=== PATIENT | male | born 1945 | race Caucasian/White ===

== ENCOUNTER 2024-04-10 20:28 | Inpatient (IN) | payer MEDICARE ==
[~2024-04-10] VITALS: Ht 177.8 cm; Wt 84.3 kg
[2024-04-10 22:48] VITALS: BP 156/82; PULSE 68; RESP 18; TEMP 100.1; O2SAT 96
[2024-04-10 23:16] VITALS: BP 156/82; PULSE 68; RESP 18; TEMP 100.1; O2SAT 96
[2024-04-11] MEDS ORDERED: DOCUSATE SOD 100 MG CAP PO PRN
[2024-04-11] MEDS ORDERED: NITROGLYCERIN 0.4 MG SL TAB SL PRN
[2024-04-11] MEDS ORDERED: MORPHINE SULFATE INJ 2 MG/ml SYRG IV PRN
--- NOTE | 2024-04-11 00:07 | DVHHP2 ---
History of Present Illness Reason for Visit: Left hip fracture History of Present Illness The patient is a 79-year-old male with past medical history of anxiety, insomnia, hypertension, acute pain, CVA on Plavix, and hyponatremia presented to [facility] ED with complaint of left hip pain. Patient reports he was standing on a chair while attempting to hang a clock on a wall when he lost balance and fell hitting his head, and landing mostly on his left hips with sustained injury. Patient was found by a neighbor who called EMS a proximally 8 hours on the floor. Patient was given 24 mg of ketamine IV by paramedics prior to arrival to the ED. patient was seen and evaluated at the facility ED, laboratory data shows WBC 11.7, hemoglobin 13.5, hematocrit 39.8, platelets 211, sodium 133, potassium 3.6, BUN 15, PT 11.8, INR 1.16, PTT 25.6, creatinine 0.80, blood pressure 178/74, heart rate 66, respiration 20, O2 saturation 95% room. CT of the pelvis revealing suspected left femoral neck fracture with foreshortening. Patient was given IV morphine sulfate 4 mg x 1, IV normal saline bolus, please see medication orders section in the chart. Patient was stabilized and then transferred to [facility] for ongoing care secondary to insurance purposes. On my assessment, patient denies chest pain, no headache, no dizziness, no loss of consciousness, no syncopal episode, no neck pain, no shortness of breath, no nausea, no vomiting, no fever, no chills. Patient was admitted for further evaluation and medical management. Past Medical History Anxiety, insomnia, hypertension, acute pain, CVA on Plavix, and hyponatremia Past Surgical History Denies all surgeries Family History Reviewed, noncontributory to the management of this case. Past Social History The patient lives at home, denies smoking, alcohol or illicit drugs abuse. Review of Systems Constitutional: Yes: Weakness; No: Fever, Chills, Sweats, Malaise, Other Eyes: No: Pain, Vision change, Conjunctivae inflammation, Eyelid inflammation, Other, Redness ENT: No: Ear pain, Ear discharge, Nose pain, Nose discharge, Nose congestion, Mouth pain, Mouth swelling, Throat pain, Throat swelling, Other Respiratory: No: Cough, Dry, Shortness of breath, SOB with excertion, Wheezing, Hemoptysis, Pleuritic Pain, Sputum, Wheezing, Other Cardiovascular: No: Chest Pain, Palpitations, Orthopnea, Paroxysmal Noc. Dyspnea, Edema, Lt Headedness, Other Gastrointestinal: No: Nausea, Vomiting, Abdominal Pain, Diarrhea, Constipation, Melena, Hematochezia, Other Genitourinary: No Dysuria, No Frequency, No Incontinence, No Hematuria, No Retention, No Other Musculoskeletal: other (Left hip pain); No: neck pain, shoulder pain, arm pain, back pain, hand pain, leg pain, foot pain Skin: Other (Superficial abrasion to the left elbow); No: Rash, Lesions, Jaundice, Bruising Neurological: No: Weakness, Numbness, Incoordination, Change in speech, C onfusion, Seizures, Other Exam Vital Signs Vital Signs Date Time Temp Pulse Resp B/P (MAP) Pulse Ox O2 Delivery O2 Flow Rate FiO2 04/10/24 22:48 100.1 68 18 156/82 (106) 96 100.1 General Appearance: Alert, Oriented X3, Cooperative, No acute distress HEENT: Atraumatic, PERRLA, EOMI, Mucous membr. moist/pink Respiratory: Clear to auscultation, Normal air movement Cardiovascular: Regular rate, Normal S1, Normal S2, No murmurs Abdominal: Normal bowel sounds, Soft, No tenderness, No hepatospenomegaly, No masses Extremities: No clubbing, No cyanosis, No edema, Normal pulses, Other (Left hip tenderness) Skin: No rashes, No breakdown, No significant lesion Neuro: Normal speech, Normal tone, Sensation intact, Cranial nerves 3-12 NL, Reflexes 2+, Other (Generalized weakness) Psych/Mental Status: Mental status NL, Mood NL Labs/Xrays CT of the pelvis result in the chart Assessment/Plan Assessment/Plan Fall with injury Left hip fracture Hypertensive urgency Generalized weakness Plan 1. Admit to med surge unit 2. Breathing treatment 3. Pain control management 4. Management of fluids and electrolytes 5. Consultation for orthopedic surgery 6. Diagnostic tests pelvic CT 7. DVT prophylaxis-on Lovenox 8. Repeat labs CBC, CMP in a.m. 9. Continue with current medical management 10. Treatment plan discussed with patient and RN. Patient verbalized understanding. Plan discussed with: Patient, Other (RN) My Orders Orders - DAVID PINEDA DNP Procedure Category Date Status Time Clonidine Hcl Tablet PHA 04/11/24 Transmitted (Catapres Tablet) 00:00 Amlodipine Tablet PHA 04/11/24 Transmitted (Norvasc Tablet) 10:00 * Orthopedic Consult CONS 04/10/24 Transmitted 23:58 Hydralazine Injection PHA 04/11/24 Transmitted (Apresoline Inject 00:00 Admit ADMIT 04/10/24 Transmitted 23:58 Allergies RAPHAEL 04/10/24 Transmitted 23:58 Code Status CODE 04/10/24 Transmitted 23:58 0.9% Ns 1000 Ml PHA 04/11/24 Transmitted 00:00 Oxygen Per Hour RT 04/10/24 Transmitted 23:58 Hydrocodone-Acet PHA 04/11/24 Transmitted 5/325mg Tab ([place] 00:00 Ondansetron Hcl PHA 04/11/24 Transmitted (Zofran) 00:00 Docusate Sodium PHA 04/11/24 Transmitted Capsule (Colace 00:00 Enoxaparin Sodium PHA 04/11/24 Transmitted (Lovenox) 10:00 Complete Blood Count LAB 04/11/24 Transmitted 04:00 Comprehensive LAB 04/11/24 Transmitted Metabolic Panel 04:00 Cardiac DIET 04/11/24 Transmitted Diet-2gna,Lofat,Lochol Breakfast Condition: Serious RAPHAEL 04/10/24 Transmitted 23:58 Acetaminophen Tablet PHA 04/11/24 Transmitted (Tylenol Tablet) 00:00 Morphine Sulfate PHA 04/11/24 Transmitted Injection 00:00 Nitroglycerin PHA 04/11/24 Transmitted Sublingual (Ntrostat 00:00 Morphine Sulfate PHA 04/11/24 Transmitted Injection 00:00 Notify Md Of Changes RAPHAEL 04/10/24 Transmitted From Base 23:58 Emergency Dysrhythmia RAPHAEL 04/10/24 Transmitted Protocol 23:58 Oxygen By Nasal RT 04/10/24 Transmitted Cannula 23:58 Lorazepam 2mg/Ml Inj PHA 04/11/24 Transmitted (Ativan Inj) 00:00 Problem List: (1) Fall with injury (2) Hip fracture, left (3) Hypertensive urgency (4) Generalized weakness Date of Service: Apr 11, 2024 Billing Provider: DAVID PINEDA DNP Common Visit Codes: [id number] INP/OBS CARE (HIGH) DAVID PINEDA DNP Apr 11, 2024 00:07
[2024-04-11] MEDS ORDERED: TEMA30CA PO (00:34)
[2024-04-11] MEDS ORDERED: LORA-1123 PO (00:34)
[2024-04-11 01:00] VITALS: BP 149/83; PULSE 66; RESP 16; TEMP 99.7; O2SAT 94
[2024-04-11] MEDS: MORPHINE SULFATE INJ 2 MG/ml SYRG IV PRN (01:40)
[2024-04-11] MEDS: SODIUM CHLORIDE 0.9% 1,000 ML IV SCH (01:40)
[2024-04-11 05:00] VITALS: BP 155/92; PULSE 65; RESP 17; TEMP 100.7; O2SAT 94
[2024-04-11 06:40] LABS: Basophils # (auto) 0 10 ^3/uL (0-0.2); Basophils % (auto) 0.4 % (0.0-2.0); Eosinophils # (auto) 0.1 10 ^3/uL (0-0.8); Eosinophils % (auto) 1.1 % (0.0-7.0); Hemoglobin 13.7 g/dL (13.5-17.5); Lymphocytes # (auto) 0.5 10 ^3/uL (0.4-5.4); Lymphocytes % (auto) 6.2 % (10.0-50.0); Mean Corpuscular Hemoglobin 32.1 pg (28.0-32.0); Mean Corpuscular Hgb Conc. 34.3 g/dL (32.0-36.0); Mean Corpuscular Volume 93.4 fL (80.0-100.0); Monocytes # (auto) 0.4 10 ^3/uL (0-1.3); Monocytes % (auto) 5.5 % (0.0-12.0); Neutrophils # (auto) 6.6 10 ^3/uL (1.6-8.6); Neutrophils % (auto) 86.8 % (37.0-80.0); Nucleated Red Blood Cells % 0.1 %; Platelet Count (auto) 197 10^3/uL (140-450); Red Blood Cells 4.29 10^6/uL (4.5-5.90); White Blood Cell 7.6 10^3/uL (4.4-10.8)
[2024-04-11 06:45] LABS: Alanine Aminotransferase 12 U/L (7-40); Albumin 3.9 g/dL (3.2-4.8); Alkaline Phosphatase 50 U/L (46-116); Anion Gap 7 (5-15); Aspartate Aminotransferase 12 U/L (13-40); BUN/Creatinine Ratio 11.1 (10.0-20.0); Blood Urea Nitrogen 8 mg/dL (9-23); Calcium 9.3 mg/dL (8.7-10.4); Carbon Dioxide 23 mmol/L (20-31); Chloride 102 mmol/L (98-107); Glucose 124 mg/dL (74-106); Potassium 4.3 mmol/L (3.5-5.1); Sodium 132 mmol/L (136-145)
[2024-04-11 06:46] LABS: Bilirubin, Total 0.8 mg/dL (0.2-1.0); Total Protein 5.9 g/dL (5.7-8.2)
[2024-04-11 08:58] VITALS: BP 165/70; PULSE 70; RESP 16; TEMP 98.2; O2SAT 95
[2024-04-11] MEDS: ENOXAPARIN SOD 40 MG/0.4 ML SYRINGE SC SCH (11:23)
--- NOTE | 2024-04-11 11:45 | DVHPN2 ---
Reviewed: Care Plan, H&P, Labs, Medications, Previous Orders, Radiology Changes from previous H/P or p: No Changes Eyes: No Pain, No Vision change, No Conjunctivae inflammation, No Eyelid inflammation, No Other, No Redness ENT: No Ear pain, No Ear discharge, No Nose pain, No Nose discharge, No Nose congestion, No Mouth pain, No Mouth swelling, No Throat pain, No Throat swelling, No Other Cardiovascular: No Chest Pain, No Palpitations, No Orthopnea, No Paroxysmal Noc. Dyspnea, No Edema, No Lt Headedness, No Other Respiratory: No Cough, No Dry, No Shortness of breath, No SOB with excertion, No Wheezing, No Hemoptysis, No Pleuritic Pain, No Sputum, No Other Gastrointestinal: No Nausea, No Vomiting, No Abdominal Pain, No Diarrhea, No Constipation, No Melena, No Hematochezia, No Other Genitourinary: No Dysuria, No Frequency, No Incontinence, No Hematuria, No Retention, No Other Musculoskeletal: other (Left hip pain); No neck pain, No shoulder pain, No arm pain, No back pain, No hand pain, No leg pain, No foot pain Skin: No Rash, No Lesions, No Jaundice, No Bruising; Other (Superficial abrasion to the left elbow) Objective Vitals Vital Signs Date Time Temp Pulse Resp B/P (MAP) Pulse Ox O2 Delivery O2 Flow Rate FiO2 04/11/24 08:58 98.2 70 16 165/70 (101) 95 98.2 04/10/24 23:16 Nasal Cannula* 3 32 Intake/Output Intake and Output 04/11/24 07:00 Intake Total 120 ml Output Total 500 ml Balance -380 ml Intake Oral 120 ml Output Urine Total 500 ml Medications Current Medications Medications Dose Ordered Sig/Kannan Route Start Time Stop Time Status Last Admin Dose Admin Clonidine HCl 0.1 mg Q4HP PRN PO 04/11/24 00:00 Amlodipine Besylate 5 mg DAILY PO 04/11/24 10:00 Hydralazine HCl 10 mg Q6HP PRN IV 04/11/24 00:00 Sodium Chloride 1,000 ml @ 60 mls/hr [id number] IV 04/11/24 00:00 04/11/24 01:40 60 MLS/HR Acetaminophen/ Hydrocodone Bitart 1 tab Q4HP PRN PO 04/11/24 00:00 Ondansetron HCl 4 mg Q4HP PRN IV 04/11/24 00:00 Docusate Sodium 100 mg BIDPRN PRN PO 04/11/24 00:00 Enoxaparin Sodium 40 mg DAILY SC 04/11/24 10:00 04/11/24 11:23 40 MG Acetaminophen 650 mg Q6HP PRN PO 04/11/24 00:00 Morphine Sulfate 2 mg Q4HPRN PRN IV 04/11/24 00:00 04/11/24 06:16 2 MG Nitroglycerin 0.4 mg Q5MINP PRN SL 04/11/24 00:00 Morphine Sulfate 2 mg Q30M PRN IV 04/11/24 00:00 Lorazepam 1 mg Q8HP PRN IV 04/11/24 00:00 Temazepam 15 mg QHSP PRN PO 04/11/24 00:15 Laboratory Results Laboratory Tests 04/11/24 05:53 Chemistry Test 04/11/24 05:53 Albumin 3.9 g/dL (3.2-4.8) Calcium Level 9.3 mg/dL (8.7-10.4) Total Protein 5.9 g/dL (5.7-8.2) LFT Test 04/11/24 05:53 Alanine Aminotransferase (ALT) 12 U/L (7-40) Alkaline Phosphatase 50 U/L (46-116) Aspartate Amino Transferase (AST) 12 U/L (13-40) L Total Bilirubin 0.8 mg/dL (0.2-1.0) Labs and/or images reviewed: Labs reviewed by me, Image(s) reviewed by me Assessment/Plan Assessment/Plan Transfer from [facility] Acute left femoral neck fracture: Consult for ortho Dr Polanco Mechanical fall Anxiety Insomnia Hypertension History of CVA on Plavix . Hold Plavix Hyponatremia Time spent 50 minutes Patient is full code Advanced care planning time 20 minutes Patient lives alone in [facility] Plan discussed with: Patient Date of Service: Apr 11, 2024 Billing Provider: DALY SPRINGER MD Common Visit Codes: [id number] INP/OBS CARE(HIGH) Secondary Visit Codes: [id number] CARE PLAN 30 MINUTES DALY SPRINGER MD Apr 11, 2024 11:45
[2024-04-11] MEDS: cloNIDine HCL 0.1 MG TAB PO PRN (11:49)
[2024-04-11] MEDS: amLODIPine BESYLATE 5 MG TAB PO SCH (11:52)
[2024-04-11 13:00] VITALS: BP 164/79; PULSE 81; RESP 18; TEMP 98.1; O2SAT 96
--- NOTE | 2024-04-11 15:03 | DVHINCON2 ---
Date of service: Apr 11, 2024 Reason for Consultation Left hip fracture History of Present Illness 79 yo M sp mechanical fall and landed onto left side. Patient had immediate pain/swelling/inability to bear weight on left leg. No cp/sob/abd pain/nausea. hx of of being on Plavix with last dose yest AM for a CVA but no residual effect. Past Medical History Past Medical History Anxiety, insomnia, hypertension, acute pain, CVA on Plavix, and hyponatremia Past Surgical History Denies all surgeries Family History: Patient reports no known family medical history. Allergies: Coded Allergies: Penicillins (Verified Allergy, Unknown, 04/11/24) Home Meds Reported Medications Lorazepam (Lorazepam) 1 Mg Tab, 1 TAB PO TID, #90 TAB 04/11/24 Temazepam (Temazepam) 30 Mg Cap, 1 CAP PO QPM, #30 CAP 1 Refill 04/11/24 Current Medications Current Medications Medications (Trade) Dose Ordered Sig/Kannan Route PRN Reason Start Time Stop Time Status Last Admin Clonidine HCl (Catapres Tablet) 0.1 mg Q4HP PRN PO SBP>150 04/11/24 00:00 04/11/24 11:49 Amlodipine Besylate (Norvasc Tablet) 5 mg DAILY PO 04/11/24 10:00 04/11/24 11:52 Hydralazine HCl (Apresoline Injection) 10 mg Q6HP PRN IV SBP>150 04/11/24 00:00 Sodium Chloride 1,000 ml @ 60 mls/hr [id number] IV 04/11/24 00:00 04/11/24 01:40 Acetaminophen/ Hydrocodone Bitart ([place] 5/325MG Tab) 1 tab Q4HP PRN PO MODERATE PAIN (4-6 PAIN SCALE) 04/11/24 00:00 Ondansetron HCl (Zofran) 4 mg Q4HP PRN IV NAUSEA / VOMITING 04/11/24 00:00 Docusate Sodium (Colace Capsule) 100 mg BIDPRN PRN PO FOR CONSTIPATION 04/11/24 00:00 Enoxaparin Sodium (Lovenox) 40 mg DAILY SC 04/11/24 10:00 04/11/24 11:23 Acetaminophen (Tylenol Tablet) 650 mg Q6HP PRN PO PAIN SCALE 1-3 OR TEMP>100.4 04/11/24 00:00 Morphine Sulfate 2 mg Q4HPRN PRN IV SEVERE PAIN (7-10 PAIN SCALE) 04/11/24 00:00 04/11/24 11:56 Nitroglycerin (Ntrostat Sublingual) 0.4 mg Q5MINP PRN SL FOR CHEST PAIN 04/11/24 00:00 Morphine Sulfate 2 mg Q30M PRN IV FOR CHEST PAIN 04/11/24 00:00 Lorazepam (Ativan Inj) 1 mg Q8HP PRN IV ANXIETY 04/11/24 00:00 Temazepam (Restoril) 15 mg QHSP PRN PO FOR INSOMNIA 04/11/24 00:15 Review of Systems 10 point ROS is neg except per HPI Vital Signs Vital Signs Date Time Temp Pulse Resp B/P (MAP) Pulse Ox O2 Delivery O2 Flow Rate FiO2 04/11/24 13:00 98.1 81 18 164/79 (107) 96 98.1 04/10/24 23:16 Nasal Cannula* 3 32 Physical Exam NAD LLE: Short ext/ rotated +TA/GS/EHL/FHL foot wwp Labs/Diagnostic Data Labs Test 04/11/24 05:53 Range/Units White Blood Count 7.6 4.4-10.8 10^3/uL Red Blood Count 4.29 L 4.5-5.90 10^6/uL Hemoglobin 13.7 13.5-17.5 g/dL Hematocrit 40.0 L 41.0-53.0 % Mean Corpuscular Volume 93.4 80.0-100.0 fL Mean Corpuscular Hemoglobin 32.1 H 28.0-32.0 pg Mean Corpuscular Hemoglobin Concent 34.3 32.0-36.0 g/dL Red Cell Distribution Width 14.0 11.8-14.3 % Platelet Count 197 140-450 10^3/uL Mean Platelet Volume 7.6 6.9-10.8 fL Neutrophils (%) (Auto) 86.8 H 37.0-80.0 % Lymphocytes (%) (Auto) 6.2 L 10.0-50.0 % Monocytes (%) (Auto) 5.5 0.0-12.0 % Eosinophils (%) (Auto) 1.1 0.0-7.0 % Basophils (%) (Auto) 0.4 0.0-2.0 % Neutrophils # (Auto) 6.6 1.6-8.6 10 ^3/uL Lymphocytes # (Auto) 0.5 0.4-5.4 10 ^3/uL Monocytes # (Auto) 0.4 0-1.3 10 ^3/uL Eosinophils # (Auto) 0.1 0-0.8 10 ^3/uL Basophils # (Auto) 0 0-0.2 10 ^3/uL Nucleated Red Blood Cells 0.1 % Sodium Level 132 L 136-145 mmol/L Potassium Level 4.3 3.5-5.1 mmol/L Chloride Level 102 98-107 mmol/L Carbon Dioxide Level 23 20-31 mmol/L Anion Gap 7 5-15 Blood Urea Nitrogen 8 L 9-23 mg/dL Creatinine 0.72 0.700-1.30 mg/dL Glomerular Filtration Rate Calc 94 >90 mL/min BUN/Creatinine Ratio 11.1 10.0-20.0 Serum Glucose 124 H 74-106 mg/dL Calcium Level 9.3 8.7-10.4 mg/dL Total Bilirubin 0.8 0.2-1.0 mg/dL Aspartate Amino Transferase (AST) 12 L 13-40 U/L Alanine Aminotransferase (ALT) 12 7-40 U/L Alkaline Phosphatase 50 46-116 U/L Total Protein 5.9 5.7-8.2 g/dL Albumin 3.9 3.2-4.8 g/dL Plan/Recommendation Displaced left femoral neck fracture 1. This patient has failed non-operative treatments for femoral neck fracture and is now indicated for a hip replacement. Preoperatively in the waiting area, I had a long discussion with the patient regarding the plan, the expected outcome, the risks, benefits, and alternatives of surgery. The risks include, but are not limited to, infection (which may require future surgery and removal of implants) , bleeding (which may require a transfusion), damage to nerves, arteries, veins, tendons, muscles and other adjacent structures. Also discussed the possibilities of intraoperative fractures, dislocation, leg length discrepancy, implant loosening, heterotopic bone formation, and revision for variety of reasons, and medical complications etc. This was discussed at length and consent has been obtained. 2. Plan for left total hip versus hip hemiarthroplasty 3. NPO/IVF 4. pain control Plan discussed with: Patient VIRGIL PRITCHARD MD Apr 11, 2024 15:03
[2024-04-11] MEDS: hydrALAZINE HCL 20 MG/ML VL IV PRN (15:35)
[2024-04-11 15:55] LABS: INR 1.15 (0.9-1.15); Prothrombin Time 12.1 sec (9.3-11.8)
--- NOTE | 2024-04-11 16:36 | DVH ---
CHEST RADIOGRAPH Indication:cad Technique: Single frontal view of the chest was obtained COMPARISON: None FINDINGS: Lines and Tubes: None Lungs: Pulmonary vascular congestion Pleura: No effusion. No pneumothorax. Cardiomediastinal contours: Unremarkable Bones: Unremarkable IMPRESSION: Pulmonary vascular congestion.
--- NOTE | 2024-04-11 16:37 | DVH ---
INDICATION: 79 years old, Male; fracture. COMPARISON: None TECHNIQUE: CT of the right was performed without contrast. Volume transverse images were obtained a nd reconstructed in multiple planes using bone and soft tissue algorithms. CONTRAST: None Radiation Dose Information: CT Dose: CTDI volume is 24.25 mGy. Dose-length product is 619.77 mGy*cm FINDINGS: The alignment is normal. The joint spaces are normal. Mildly displaced subcapital fracture left proximal femur The soft tissues are normal. IMPRESSION: Mildly displaced subcapital fracture left proximal femur. HS:Y
[2024-04-11 17:00] VITALS: BP 152/68; PULSE 70; RESP 18; TEMP 98; O2SAT 94
[2024-04-11 21:00] VITALS: BP 134/63; PULSE 72; RESP 19; TEMP 97.8; O2SAT 94
[2024-04-11] MEDS: HYDROcodone-ACET 5/325MG TAB PO PRN (21:08)
[2024-04-11] MEDS: TEMAZEPAM 15 MG CAP PO PRN (21:09)
[2024-04-12] MEDS: LORazepam 2MG/ML-1ML VIAL IV PRN (00:23)
[2024-04-12 01:00] VITALS: BP 150/76; PULSE 72; RESP 18; TEMP 98.1; O2SAT 95
[2024-04-12 05:00] VITALS: BP 168/86; PULSE 71; RESP 18; TEMP 98; O2SAT 95
[2024-04-12] MEDS: ACETAMINOPHEN 325 MG TAB PO PRN (07:35)
[2024-04-12] MEDS: TRANEXAMIC ACID 20 ML ONE (07:53)
[2024-04-12] MEDS: BUPIVACAINE 0.25% INJ 50ML VIAL ONE (07:53)
[2024-04-12] MEDS: VANCOMYCIN HCL 1000 MG VL ONE (07:54)
[2024-04-12 08:08] VITALS: BP 161/74; PULSE 76; RESP 18; TEMP 100.8; O2SAT 96
--- NOTE | 2024-04-12 08:16 | DVHPN2 ---
Reviewed: Care Plan, H&P, Labs, Medications, Previous Orders, Radiology Changes from previous H/P or p: No Changes Eyes: No Pain, No Vision change, No Conjunctivae inflammation, No Eyelid inflammation, No Other, No Redness ENT: No Ear pain, No Ear discharge, No Nose pain, No Nose discharge, No Nose congestion, No Mouth pain, No Mouth swelling, No Throat pain, No Throat swelling, No Other Cardiovascular: No Chest Pain, No Palpitations, No Orthopnea, No Paroxysmal Noc. Dyspnea, No Edema, No Lt Headedness, No Other Respiratory: No Cough, No Dry, No Shortness of breath, No SOB with excertion, No Wheezing, No Hemoptysis, No Pleuritic Pain, No Sputum, No Other Gastrointestinal: No Nausea, No Vomiting, No Abdominal Pain, No Diarrhea, No Constipation, No Melena, No Hematochezia, No Other Genitourinary: No Dysuria, No Frequency, No Incontinence, No Hematuria, No Retention, No Other Musculoskeletal: other (Left hip pain); No neck pain, No shoulder pain, No arm pain, No back pain, No hand pain, No leg pain, No foot pain Skin: No Rash, No Lesions, No Jaundice, No Bruising; Other (Superficial abrasion to the left elbow) Objective Vitals Vital Signs Date Time Temp Pulse Resp B/P (MAP) Pulse Ox O2 Delivery O2 Flow Rate FiO2 04/12/24 08:08 100.8 76 18 161/74 (103) 96 100.8 04/11/24 20:00 Nasal Cannula* 3 32 Intake/Output Intake and Output 04/12/24 07:00 Intake Total 840 ml Output Total 1800 ml Balance -960 ml Intake Oral 840 ml Output Urine Total 1800 ml Medications Current Medications Medications Dose Ordered Sig/Kannan Route Start Time Stop Time Status Last Admin Dose Admin Clonidine HCl 0.1 mg Q4HP PRN PO 04/11/24 00:00 04/11/24 11:49 0.1 MG Amlodipine Besylate 5 mg DAILY PO 04/11/24 10:00 04/11/24 11:52 5 MG Hydralazine HCl 10 mg Q6HP PRN IV 04/11/24 00:00 04/12/24 04:43 10 MG Sodium Chloride 1,000 ml @ 60 mls/hr [id number] IV 04/11/24 00:00 04/11/24 18:04 60 MLS/HR Acetaminophen/ Hydrocodone Bitart 1 tab Q4HP PRN PO 04/11/24 00:00 04/11/24 21:08 1 TAB Ondansetron HCl 4 mg Q4HP PRN IV 04/11/24 00:00 Docusate Sodium 100 mg BIDPRN PRN PO 04/11/24 00:00 Enoxaparin Sodium 40 mg DAILY SC 04/11/24 10:00 04/11/24 11:23 40 MG Acetaminophen 650 mg Q6HP PRN PO 04/11/24 00:00 04/12/24 07:35 650 MG Morphine Sulfate 2 mg Q4HPRN PRN IV 04/11/24 00:00 04/12/24 03:54 2 MG Nitroglycerin 0.4 mg Q5MINP PRN SL 04/11/24 00:00 Morphine Sulfate 2 mg Q30M PRN IV 04/11/24 00:00 Lorazepam 1 mg Q8HP PRN IV 04/11/24 00:00 04/12/24 00:23 1 MG Temazepam 15 mg QHSP PRN PO 04/11/24 00:15 04/11/24 21:09 15 MG Laboratory Results Laboratory Tests 04/11/24 05:53 Coagulation Test 04/11/24 15:19 Prothrombin Time 12.1 sec (9.3-11.8) H Prothrombin Time INR 1.15 (0.9-1.15) Labs and/or images reviewed: Labs reviewed by me, Image(s) reviewed by me Assessment/Plan Assessment/Plan [facility] Acute left femoral neck fracture: Patient getting surgery by Dr Polanco today. Mechanical fall Anxiety Insomnia Hypertension History of CVA on Plavix . Hold Plavix Hyponatremia Time spent 50 minutes Patient is full code Advanced care planning time 20 minutes Patient lives alone in [facility] Plan discussed with: Patient Date of Service: Apr 12, 2024 Billing Provider: DALY SPRINGER MD Common Visit Codes: [id number] INP/OBS CARE(HIGH) DALY SPRINGER MD Apr 12, 2024 08:16
[2024-04-12] MEDS: KETOROLAC TROMETH 30 MG/ML 1ML VIAL ONE (08:57)
[2024-04-12] MEDS ORDERED: fentaNYL CITRATE 100 MCG/2 ML VL ONE ×2 (08:59→09:42)
[2024-04-12] MEDS ORDERED: PROPOFOL 10 MG/ML 20 ML IV ONE (08:59)
[2024-04-12] MEDS: ceFAZolin 1GM/50ML 100 ML IV ONE (09:05)
[2024-04-12] MEDS: CEFEPIME 1GM/ 50ML 50 ML IV ONE (09:06)
[2024-04-12] MEDS ORDERED: ePHEDrine SULFATE 50 MG/ML AMP ONE (09:23)
[2024-04-12] MEDS ORDERED: MEPERIDINE HCL (25 MG/ML) 1ML VIAL ONE ×2 (09:24→09:41)
[2024-04-12] MEDS: MORPHINE SULF PF 5 MG/10 ML VIAL ONE (09:36)
[2024-04-12] MEDS: ROPIVACAINE 0.5% (5MG/ML) 20ML AMPULE IJ ONE (10:12)
--- NOTE | 2024-04-12 10:30 | DVHOP2 ---
Operative Report - 2 Report Details Date: 04/12/24 Preop Diagnosis: Displaced left femoral neck fracture Postop Diagnosis: As above Surgeon: Lewis Polanco MD Anesthesiologist: Ratna FELTON Anesthesia: General, Regional Implant: [employer] Size 6 polaris high offset stem 54 R3 cup 40 Bipolar tandem with 28+4 femoral head Consent: The patient was informed of the risks and benefits of the procedure. These include but are not limited to complications of anesthesia, postoperative infection, incomplete relief of symptoms, recurrence of symptoms, damage to blood vessels, nerves and tendons, deep venous thrombosis, pulmonary embolism and possible need for repeat surgery in the future. Estimated Blood Loss: 200 cc Indications for Surgery: displaced left femoral neck fracture Name of Procedure Performed Left total hip arthroplasty Procedure Details Procedure Details: INDICATION: I had a long discussion with the patient regarding the plan, the expected outcome, the risks, benefits, and alternatives of surgery. The risks include, but are not limited to, infection (which may require future surgery and removal of implants) , bleeding (which may require a transfusion), damage to nerves, arteries, veins, tendons, muscles and other adjacent structures. Also discussed the possibilities of dislocation, leg-length discrepancy, intraoperative fractures, implant loosening, heterotopic bone formation, and revision for variety of reasons, and medical complications etc. This was d iscussed at length and consent has been obtained. DESCRIPTION OF PROCEDURE: In the preoperative holding area, the consent was reviewed and the appropriate extremity was verified by the patient and marked with my initials. The patient was then transferred to the operating theatre. Appropriate anesthetia was induced. All bony prominences were well padded. A time out was performed verifying the side and site of surgery according to standard protocol. Preoperative antibiotics were given. Tranexamic acid was given. The patient was then placed in the lateral decubitus position and fixed with rigid pelvic fixation. All bony prominences were well padded and an axillary roll was placed. The affected hip area was then prepped and draped in the usual sterile fashion. We made a standard posterolateral incision sharply through the skin and carried our dissection down through subcutaneous tissue to the underlying fascia achieving hemostasis where necessary. We incised the fascia in line with our incision. We identified and protected the sciatic nerve. We took down the external rotators and hip capsule from their insertion into the greater trochanter, tagged them and retracted them posteriorly for further protection of the sciatic nerve. We then dislocated the femoral head and performed a freshening osteotomy of the femoral neck in accordance with our pre-operative plan. The labrum was excised with a long-handle knife, and we exposed the acetabular rim and cotyloid fossa. We then reamed up to our final size in accordance with the preoperative plan. We copiously irrigated and then impacted the final cup into position. We ir rigated the cup and impacted the liner, checking to make sure it was well seated. Attention was then turned to the femur. We used a box osteotome followed by a canal finder to gain entry to the canal. Intramedullary contents were suctioned and care was taken to ensure they did not touch the tissues. We sequentially reamed until good cortical contact, then broached up to out final size. We trialed with the appropriate femoral neck and head and reduced the hip. The hip was taken through a full range of motion. The hip soft tissues were examined in extension and external rotation, the anterior capsule and IT band were palpated, and combined anteversion was determined to be 40 degrees. The hip was stable at maximum flexion, at 90 degrees of flexion and 45 degrees of internal rotation and the position of sleep. The hip was then dislocated and trial components removed. We copiously irrigated the wound and impacted the final femoral stem into position. The femoral head was impacted onto a clean and dry trunion and confirmed to be seated. The hip was reduced ensuring to tissues in the acetabular cup. We again brought it through a full functional range of motion and there was no evidence for dislocation, instability, or impingement. A dilute betadine solution (17.5mL in 500mL saline) was used to wash the joint and left to sit for 3 minutes. This was then irrigated out with copious amounts of pulse lavage. We sprinkled 1g vancomycin powder below the fascia and 1g above the fascia. We copiously irrigated the wound and soft tissues. The short external rotators and capsule were repaired to the greater trochanter through drill holes, and the quadratus was repaired. We palpated the sciatic nerve in continuity without tension. The fascia was closed with vicryl and a barbed suture. We closed over the fascia with vicryl suture and re-approximated the skin with hair. A sterile dressing was placed. We returned the patient to the supine position. We verified all lower extremity compartments were soft and compressible and that we had intact distal pulses and checked our leg length protestant. The patient was then transferred to the recovery room in stable condition. Postop Plan: 1. WBAT with walker/ posterior hip precautions 2. PT 3. pain control 4. dvt ppx -- can resume plavix 5. okay to change dressing as needed 6. follow up in [facility] orthopedic clinic in [address] Polanco Condition Good Disposition Still a Patient LEWIS POLANCO MD Apr 12, 2024 10:30
[2024-04-12] MEDS ORDERED: HYDROmorphone HCL 2 MG/ML VL/or syr IV PRN (11:00)
[2024-04-12] MEDS ORDERED: ACETAMINOPHEN IV 1000 MG/100ML (10MG/ML) IV PRN (11:00)
[2024-04-12] MEDS: ONDANSETRON HCL 4 MG/2 ML VIAL IV ONE (11:00)
[2024-04-12] MEDS ORDERED: MEPERIDINE HCL (25 MG/ML) 1ML VIAL IV PRN (11:00)
--- NOTE | 2024-04-12 11:35 | DVHSR ---
APPROVED REPORT EXAM: Two-dimensional and M-mode echocardiogram with Doppler and color Doppler. Blood Pressure: 164/79 mmHg INDICATION CAD RISK FACTORS Height: 5'10", Weight: 174 DIMENSIONS LVDd4.5 (3.8-5.7cm)LA (2D)3.7 (1.9-4.0cm)Aortic Root4.1 (2.0-3.7cm) LVDs3.0 (2.5-4.0cm)LA (MM) (1.9-4.0cm)Aortic Cusp Exc2.0 (1.5-2.0cm) EF (%) 60.0 (55-70%)Rt. Atrium3.0 (1.9-4.0cm)Asc. Aorta cm IVSd1.3 (0.7-1.1cm)RV (D) (1.8-2.4cm) PWd1.2 (0.7-1.1cm) Mitral Valve MitralMitral Stenosis E wave0.68m/sMV Mean GR.mmHg A wave0.83m/sMV Peak GR.mmHg E/A ratio0.82D MVAcm2 DECEL [id number] 1/2 Timems Aortic Valve Aortic ValveAortic Stenosis V11.46m/Tesfaye Mean GR.7mmHg V21.73m/Tesfaye Peak GR.12mmHg LVOT Diameter2.0 (1.8-2.4cm)Doppler AVA2.65cm2 Other Information Technically limited study due to body habitus, patient lying flat. Conclusion Normal left ventricular size and dimension. Normal left ventricular systolic function estimated ejec tion fraction 55%. There is a grade 1 diastolic dysfunction. Normal right ventricular size and dimension. Normal right ventricular systolic function. Normal biatrial size and dimension. Normal aortic valve structure and function. Normal mitral valve structure and function. Normal tricuspid valve structure and function. The pulmonary valve is grossly normal. No pericardial effusion.
--- NOTE | 2024-04-12 12:44 | DVH ---
Pelvis/left hip radiograph CLINICAL INDICATION: sp Left REGAN TECHNIQUE: 1 radiographic views of the pelvis/left hip were obtained. Comparison: None FINDINGS: Post left hip arthroplasty. There is no evidence of acute fracture or dislocation. The visualized joint space is well maintained. The alignment is anatomical. Small volume gas and fluid in the joint space IMPRESSION: Expected findings post left hip arthroplasty.
[2024-04-12 13:00] VITALS: BP_SYST 141; BP_SYST 154; BP_DIAS 67; BP_DIAS 83; PULSE 104; PULSE 77; RESP 18; RESP 20; TEMP 97.6; TEMP 97.9; O2SAT 100; O2SAT 93
[2024-04-12] MEDS: ceFAZolin 2 GM/D5W50ml 50 ML IV SCH (14:00)
[2024-04-12 17:00] VITALS: BP 132/74; PULSE 87; RESP 18; TEMP 98.2; O2SAT 96
[2024-04-12 21:00] VITALS: BP 155/73; PULSE 96; RESP 18; TEMP 98.6; O2SAT 95
[2024-04-13] VITALS (7 sets, daily range): BP systolic 101–168; BP diastolic 64–88; PULSE 70–97; RESP 17–21; TEMP 97.7–99.5; O2SAT 94–98
[2024-04-13 06:21] LABS: Basophils # (auto) 0 10 ^3/uL (0-0.2); Basophils % (auto) 0.2 % (0.0-2.0); Eosinophils # (auto) 0 10 ^3/uL (0-0.8); Eosinophils % (auto) 0.3 % (0.0-7.0); Hematocrit 32.6 % (41.0-53.0); Hemoglobin 11.6 g/dL (13.5-17.5); Lymphocytes # (auto) 0.4 10 ^3/uL (0.4-5.4); Lymphocytes % (auto) 5.4 % (10.0-50.0); Mean Corpuscular Hemoglobin 33.1 pg (28.0-32.0); Mean Corpuscular Hgb Conc. 35.6 g/dL (32.0-36.0); Mean Corpuscular Volume 93.1 fL (80.0-100.0); Monocytes # (auto) 0.7 10 ^3/uL (0-1.3); Monocytes % (auto) 9.2 % (0.0-12.0); Neutrophils # (auto) 6.3 10 ^3/uL (1.6-8.6); Neutrophils % (auto) 84.9 % (37.0-80.0); Platelet Count (auto) 165 10^3/uL (140-450); Red Cell Distribution Width 13.7 % (11.8-14.3); White Blood Cell 7.4 10^3/uL (4.4-10.8)
[2024-04-13 06:40] LABS: Alanine Aminotransferase 14 U/L (7-40); Albumin 3.6 g/dL (3.2-4.8); Alkaline Phosphatase 46 U/L (46-116); Anion Gap 6 (5-15); Aspartate Aminotransferase 13 U/L (13-40); BUN/Creatinine Ratio 21.4 (10.0-20.0); Blood Urea Nitrogen 15 mg/dL (9-23); Calcium 8.9 mg/dL (8.7-10.4); Carbon Dioxide 25 mmol/L (20-31); Chloride 100 mmol/L (98-107); Glucose 163 mg/dL (74-106); Potassium 4.4 mmol/L (3.5-5.1); Sodium 131 mmol/L (136-145)
[2024-04-13 06:41] LABS: Bilirubin, Total 0.7 mg/dL (0.2-1.0); Total Protein 5.6 g/dL (5.7-8.2)
--- NOTE | 2024-04-13 09:28 | DVHPN2 ---
Reviewed: Care Plan, H&P, Labs, Medications, Previous Orders, Radiology Changes from previous H/P or p: No Changes Eyes: No Pain, No Vision change, No Conjunctivae inflammation, No Eyelid inflammation, No Other, No Redness ENT: No Ear pain, No Ear discharge, No Nose pain, No Nose discharge, No Nose congestion, No Mouth pain, No Mouth swelling, No Throat pain, No Throat swelling, No Other Cardiovascular: No Chest Pain, No Palpitations, No Orthopnea, No Paroxysmal Noc. Dyspnea, No Edema, No Lt Headedness, No Other Respiratory: No Cough, No Dry, No Shortness of breath, No SOB with excertion, No Wheezing, No Hemoptysis, No Pleuritic Pain, No Sputum, No Other Gastrointestinal: No Nausea, No Vomiting, No Abdominal Pain, No Diarrhea, No Constipation, No Melena, No Hematochezia, No Other Genitourinary: No Dysuria, No Frequency, No Incontinence, No Hematuria, No Retention, No Other Musculoskeletal: other (Left hip pain); No neck pain, No shoulder pain, No arm pain, No back pain, No hand pain, No leg pain, No foot pain Skin: No Rash, No Lesions, No Jaundice, No Bruising; Other (Superficial abrasion to the left elbow) Objective Vitals Vital Signs Date Time Temp Pulse Resp B/P (MAP) Pulse Ox O2 Delivery O2 Flow Rate FiO2 04/13/24 09:00 98.9 88 20 159/78 (105) 94 98.9 04/12/24 20:00 Nasal Cannula* 3 32 Intake/Output Intake and Output 04/13/24 07:00 Intake Total 930 ml Output Total 600 ml Balance 330 ml Intake Oral 760 ml IV Total 170 ml Output Urine Total 600 ml Medications Current Medications Medications Dose Ordered Sig/Kannan Route Start Time Stop Time Status Last Admin Dose Admin Clonidine HCl 0.1 mg Q4HP PRN PO 04/11/24 00:00 04/11/24 11:49 0.1 MG Amlodipine Besylate 5 mg DAILY PO 04/11/24 10:00 04/12/24 14:22 5 MG Hydralazine HCl 10 mg Q6HP PRN IV 04/11/24 00:00 04/13/24 07:15 10 MG Sodium Chloride 1,000 ml @ 60 mls/hr [id number] IV 04/11/24 00:00 04/12/24 14:17 60 MLS/HR Acetaminophen/ Hydrocodone Bitart 1 tab Q4HP PRN PO 04/11/24 00:00 04/13/24 07:22 1 TAB Ondansetron HCl 4 mg Q4HP PRN IV 04/11/24 00:00 Docusate Sodium 100 mg BIDPRN PRN PO 04/11/24 00:00 Enoxaparin Sodium 40 mg DAILY SC 04/11/24 10:00 04/12/24 14:17 40 MG Acetaminophen 650 mg Q6HP PRN PO 04/11/24 00:00 04/12/24 07:35 650 MG Morphine Sulfate 2 mg Q4HPRN PRN IV 04/11/24 00:00 04/13/24 05:58 2 MG Nitroglycerin 0.4 mg Q5MINP PRN SL 04/11/24 00:00 Morphine Sulfate 2 mg Q30M PRN IV 04/11/24 00:00 Lorazepam 1 mg Q8HP PRN IV 04/11/24 00:00 04/12/24 00:23 1 MG Temazepam 15 mg QHSP PRN PO 04/11/24 00:15 04/11/24 21:09 15 MG Cefepime HCl 50 ml @ 12.5 mls/hr DAILY IV 04/13/24 10:00 04/14/24 13:59 Laboratory Results Laboratory Tests 04/13/24 05:01 Chemistry Test 04/13/24 05:01 Albumin 3.6 g/dL (3.2-4.8) Calcium Level 8.9 mg/dL (8.7-10.4) Total Protein 5.6 g/dL (5.7-8.2) L LFT Test 04/13/24 05:01 Alanine Aminotransferase (ALT) 14 U/L (7-40) Alkaline Phosphatase 46 U/L (46-116) Aspartate Amino Transferase (AST) 13 U/L (13-40) Total Bilirubin 0.7 mg/dL (0.2-1.0) Labs and/or images reviewed: Labs reviewed by me, Image(s) reviewed by me Assessment/Plan Assessment/Plan Transferred from [facility] Acute left femoral neck fracture: Status post Left total hip arthroplasty by orthopedic Dr Polanco on 04-12-24, on cefepime Mechanical fall Anxiety Insomnia Hypertension History of CVA on Plavix . Resume Plavix Hyponatremia DVT prophylaxis: Lovenox subQ Time spent 50 minutes Patient is full code Patient requesting retirement facility placement Patient lives alone in [facility] Physical therapy ordered Plan discussed with: Patient Date of Service: Apr 13, 2024 Billing Provider: DALY SPRINGER MD Common Visit Codes: [id number] INP/OBS CARE(HIGH) DALY SPRINGER MD Apr 13, 2024 09:28
[2024-04-13] MEDS: CEFEPIME 1GM/ 50ML 50 ML IV SCH (09:37)
[2024-04-13] MEDS: CLOPIDOGREL BISULFATE 75 MG TAB PO SCH (13:11)
[2024-04-13] MEDS: ONDANSETRON HCL 4 MG/2 ML VIAL IV PRN (21:25)
[2024-04-14] VITALS (7 sets, daily range): BP systolic 140–155; BP diastolic 65–76; PULSE 87–99; RESP 16–19; TEMP 98.4–99.3; O2SAT 94–97
--- NOTE | 2024-04-14 08:24 | DVHPN2 ---
Reviewed: Care Plan, H&P, Labs, Medications, Previous Orders, Radiology Changes from previous H/P or p: No Changes Eyes: No Pain, No Vision change, No Conjunctivae inflammation, No Eyelid inflammation, No Other, No Redness ENT: No Ear pain, No Ear discharge, No Nose pain, No Nose discharge, No Nose congestion, No Mouth pain, No Mouth swelling, No Throat pain, No Throat swelling, No Other Cardiovascular: No Chest Pain, No Palpitations, No Orthopnea, No Paroxysmal Noc. Dyspnea, No Edema, No Lt Headedness, No Other Respiratory: No Cough, No Dry, No Shortness of breath, No SOB with excertion, No Wheezing, No Hemoptysis, No Pleuritic Pain, No Sputum, No Other Gastrointestinal: No Nausea, No Vomiting, No Abdominal Pain, No Diarrhea, No Constipation, No Melena, No Hematochezia, No Other Genitourinary: No Dysuria, No Frequency, No Incontinence, No Hematuria, No Retention, No Other Musculoskeletal: other (Left hip pain); No neck pain, No shoulder pain, No arm pain, No back pain, No hand pain, No leg pain, No foot pain Skin: No Rash, No Lesions, No Jaundice, No Bruising; Other (Superficial abrasion to the left elbow) Objective Vitals Vital Signs Date Time Temp Pulse Resp B/P (MAP) Pulse Ox O2 Delivery O2 Flow Rate FiO2 04/14/24 05:00 98.4 95 19 145/76 (99) 95 98.4 04/13/24 20:00 Nasal Cannula* 2 28 Intake/Output Intake and Output 04/14/24 07:00 Intake Total 3220 ml Output Total 700 ml Balance 2520 ml Intake Oral 1510 ml IV Total 1710 ml Output Urine Total 700 ml # Bowel Movements 1 Medications Current Medications Medications Dose Ordered Sig/Kannan Route Start Time Stop Time Status Last Admin Dose Admin Clonidine HCl 0.1 mg Q4HP PRN PO 04/11/24 00:00 04/11/24 11:49 0.1 MG Amlodipine Besylate 5 mg DAILY PO 04/11/24 10:00 04/13/24 09:37 5 MG Hydralazine HCl 10 mg Q6HP PRN IV 04/11/24 00:00 04/13/24 07:15 10 MG Sodium Chloride 1,000 ml @ 60 mls/hr [id number] IV 04/11/24 00:00 04/13/24 20:28 60 MLS/HR Acetaminophen/ Hydrocodone Bitart 1 tab Q4HP PRN PO 04/11/24 00:00 04/13/24 07:22 1 TAB Ondansetron HCl 4 mg Q4HP PRN IV 04/11/24 00:00 04/13/24 21:25 4 MG Docusate Sodium 100 mg BIDPRN PRN PO 04/11/24 00:00 Enoxaparin Sodium 40 mg DAILY SC 04/11/24 10:00 04/13/24 09:36 40 MG Acetaminophen 650 mg Q6HP PRN PO 04/11/24 00:00 04/12/24 07:35 650 MG Morphine Sulfate 2 mg Q4HPRN PRN IV 04/11/24 00:00 04/13/24 21:26 2 MG Nitroglycerin 0.4 mg Q5MINP PRN SL 04/11/24 00:00 Morphine Sulfate 2 mg Q30M PRN IV 04/11/24 00:00 Lorazepam 1 mg Q8HP PRN IV 04/11/24 00:00 04/12/24 00:23 1 MG Temazepam 15 mg QHSP PRN PO 04/11/24 00:15 04/11/24 21:09 15 MG Cefepime HCl 50 ml @ 12.5 mls/hr DAILY IV 04/13/24 10:00 04/14/24 13:59 04/13/24 09:37 12.5 MLS/HR Clopidogrel Bisulfate 75 mg DAILY PO 04/13/24 10:00 04/13/24 13:11 75 MG Laboratory Results Laboratory Tests 04/13/24 05:01 Labs and/or images reviewed: Labs reviewed by me, Image(s) reviewed by me Assessment/Plan Assessment/Plan Transferred from [facility] Acute left femoral neck fracture: Status post Left total hip arthroplasty by orthopedic Dr Polanco on 04-12-24, on cefepime Mechanical fall Anxiety Insomnia Hypertension History of CVA on Plavix . Resume Plavix Hyponatremia DVT prophylaxis: Lovenox subQ Discharged to residential facility for rehab Plan discussed with: Patient My Orders Orders - DAYL SPRINGER MD Procedure Category Date Status Time Pt Request For Service PT 04/13/24 Logged 09:22 Clopidogrel Bisulfate PHA 04/13/24 In Process (Plavix) 10:00 Covid19 Antigen [facility] 04/14/24 Logged Date of Service: Apr 14, 2024 Billing Provider: DALY SPRINGER MD Common Visit Codes: [id number] INP/OBS CARE(HIGH) DALY SPRINGER MD Apr 14, 2024 08:24
--- NOTE | 2024-04-14 08:32 | DVHDS2 ---
Discharge Summary Date of Admission Apr 10, 2024 at 22:40 Date of Discharge: Apr 14, 2024 Admitting Diagnosis Left hip pain status post mechanical fall Wounds: Total left hip arthroplasty Labs/Diagnostic Data: Laboratory Results Test 04/13/24 05:01 04/11/24 15:19 White Blood Count 7.4 10^3/uL (4.4-10.8) Red Blood Count 3.50 10^6/uL (4.5-5.90) Hemoglobin 11.6 g/dL (13.5-17.5) Hematocrit 32.6 % (41.0-53.0) Mean Corpuscular Volume 93.1 fL (80.0-100.0) Mean Corpuscular Hemoglobin 33.1 pg (28.0-32.0) Mean Corpuscular Hemoglobin Concent 35.6 g/dL (32.0-36.0) Red Cell Distribution Width 13.7 % (11.8-14.3) Platelet Count 165 10^3/uL (140-450) Mean Platelet Volume 8.1 fL (6.9-10.8) Neutrophils (%) (Auto) 84.9 % (37.0-80.0) Lymphocytes (%) (Auto) 5.4 % (10.0-50.0) Monocytes (%) (Auto) 9.2 % (0.0-12.0) Eosinophils (%) (Auto) 0.3 % (0.0-7.0) Basophils (%) (Auto) 0.2 % (0.0-2.0) Neutrophils # (Auto) 6.3 10 ^3/uL (1.6-8.6) Lymphocytes # (Auto) 0.4 10 ^3/uL (0.4-5.4) Monocytes # (Auto) 0.7 10 ^3/uL (0-1.3) Eosinophils # (Auto) 0 10 ^3/uL (0-0.8) Basophils # (Auto) 0 10 ^3/uL (0-0.2) Nucleated Red Blood Cells 0.0 % Sodium Level 131 mmol/L (136-145) Potassium Level 4.4 mmol/L (3.5-5.1) Chloride Level 100 mmol/L (98-107) Carbon Dioxide Level 25 mmol/L (20-31) Anion Gap 6 (5-15) Blood Urea Nitrogen 15 mg/dL (9-23) Creatinine 0.70 mg/dL (0.700-1.30) Glomerular Filtration Rate Calc 95 mL/min (>90) BUN/Creatinine Ratio 21.4 (10.0-20.0) Serum Glucose 163 mg/dL (74-106) Calcium Level 8.9 mg/dL (8.7-10.4) Total Bilirubin 0.7 mg/dL (0.2-1.0) Aspartate Amino Transferase (AST) 13 U/L (13-40) Alanine Aminotransferase (ALT) 14 U/L (7-40) Alkaline Phosphatase 46 U/L (46-116) Total Protein 5.6 g/dL (5.7-8.2) Albumin 3.6 g/dL (3.2-4.8) Prothrombin Time 12.1 sec (9.3-11.8) Prothrombin Time INR 1.15 (0.9-1.15) Other Laboratory Tests 04/13/24 05:01 Brief Hx & Hospital Course: 79-year-old male who lives alone in [place] had a mechanical fall sustained fracture to the left femur seen at [facility] and transferred to [facility] for surgery. Patient underwent left total hip arthroplasty by orthopedic Dr Polanco on 04/12/2024. Placed on cefepime postop. History of anxiety insomnia hypertension and history of CVA on Plavix mild hyponatremia resolved. Cleared for discharge by Orthopedic being discharged to longterm facility for rehab. Received physical therapy while in the hospital who recommended longterm facility placement and patient is agreeable. He will follow up with Dr. Polanco in two weeks. He will resume Plavix and will be on Xarelto for DVT prophylaxis for a month; Consults/Reason for consult Orthopedic Dr Polanco Operations or Procedures Total left hip arthroplasty Condition at Discharge: Fair Final Diagnosis/Problems List Acute left femoral neck fracture: Status post Left total hip arthroplasty by orthopedic Dr Polanco on 04-12-24, on cefepime Mechanical fall Anxiety Insomnia Hypertension History of CVA on Plavix . Resume Plavix Hyponatremia DVT prophylaxis: Lovenox subQ Discharge Disposition: Detention Facility Discharge Instruct/Medications Diet: Cardiac 2g Na,low cholest Activity: See Comment Activity comment: Weight-bearing left lower extremity as tolerated Follow Up/Referral: [facility] with [facility] Medications: see list 35 (Time taken for discharge summary 35 minutes) Discharge Statement: "Patient was advised to return to the ER or call 911 if any headaches, dizziness, shortness of breath, chest pain, abdominal pain, bleeding, fevers, or worsening of medical condition. Patient was counseled about treatment plan, medications, possible side effects, patientverbalized understanding. All questions were answered to the best of my ability. This discharge took greater then 30 minutes in planning, reviewing documentation, counseling the patient, and discussing with other team members." ASSESSMENT ASSESSMENT Hospital Course Improved Assessment Acute left femoral neck fracture: Status post Left total hip arthroplasty by orthopedic Dr Polanco on 04-12-24, on cefepime Mechanical fall Anxiety Insomnia Hypertension History of CVA on Plavix . Resume Plavix Hyponatremia DVT prophylaxis: Lovenox subQ Date of Service: Apr 14, 2024 Billing Provider: DALY SPRINGER MD Common Visit Codes: [id number] DISCH DAY >30min DALY SPRINGER MD Apr 14, 2024 08:32
[2024-04-14 11:14] LABS: COVID19 ANTIGEN SOFIA FIA NEGATIVE (NEGATIVE)
== END 2024-04-14 17:00 | DRG 522 ==
LOC: CENTRAL 22:40
PROVIDERS: ADMIT Internal Medicine; ATTEND Family Medicine
PROC: 0SRB0JZ Replacement of Left Hip Joint with Synthetic Substitute, Open Approach (ICD-10-PCS; principal; 2024-04-12 09:10)
DX: S72.002A Fracture of unspecified part of neck of left femur, initial encounter for closed fracture (principal); E87.1 Hypo-osmolality and hyponatremia; R71.0 Precipitous drop in hematocrit; F41.9 Anxiety disorder, unspecified; Z20.822 Contact with and (suspected) exposure to COVID-19; G47.00 Insomnia, unspecified; I16.0 Hypertensive urgency; Z79.02 Long term (current) use of antithrombotics/antiplatelets; Z86.73 Personal history of transient ischemic attack (TIA), and cerebral infarction without residual deficits; W01.0XXA Fall on same level from slipping, tripping and stumbling without subsequent striking against object, initial encounter; Y93.89 Activity, other specified; Y92.89 Other specified places as the place of occurrence of the external cause; Y99.8 Other external cause status
CPT/HCPCS: 36415; 71045; 72170; 73700; 80053; 85025; 85610; 87426; 93306; 97110; 97116; 97163; 97530; G0378; J0131; J1885; J2405; J2704; J3490